=== PATIENT | female | born 1935 | race Caucasian/White ===

== ENCOUNTER 2024-01-31 11:55 | Inpatient (IN) | payer OTHER ==
[~2024-01-31] VITALS: Ht 152.4 cm; Wt 49.0 kg
[2024-01-31 12:33] LABS: BASOPHILS % (AUTO) 0.6 % (0.0-2.0); EOSINOPHILS % (AUTO) 0.5 % (0.0-7.0); HEMATOCRIT 42.7 % (31.2-41.9); HEMOGLOBIN 13.8 g/dL (10.9-14.3); LYMPHOCYTES # (AUTO) 0.2 K/uL (0.8-4.8); LYMPHOCYTES % (AUTO) 3.4 % (20.5-51.5); MEAN CORPUSCULAR HEMOGLOBIN 29.4 uug (24.7-32.8); MEAN CORPUSCULAR HGB CONC 32 g/dL (32.3-35.6); MEAN CORPUSCULAR VOLUME 91.1 fL (75.5-95.3); MONOCYTES # (AUTO) 0.1 K/uL (0.1-1.30); MONOCYTES % (AUTO) 1.5 % (0.0-11.0); NEUTROPHILS # (AUTO) 6.4 K/uL (1.8-8.9); PLATELET COUNT (AUTO) 280 K/uL (179-408); RED BLOOD CELL COUNT(AUTO) 4.69 MIL/uL (3.63-4.92); RED CELL DISTRIBUTION WIDTH 14.5 % (12.3-17.7); WHITE BLOOD COUNT (AUTO) 6.9 K/uL (3.8-11.8)
[2024-01-31 12:42] LABS: CARBON DIOXIDE 29 mmol/L (21-32); CHLORIDE 104 mmol/L (98-107); CREATININE 0.9 mg/dL (0.6-1.3); GLUCOSE 125 mg/dL (74-106); POTASSIUM 3.7 mmol/L (3.5-5.1); SODIUM SERUM 143 mmol/L (136-145); UREA NITROGEN, BLOOD 14 mg/dL (7-18)
[2024-01-31 12:43] LABS: *BILIRUBIN,URIN NEGATIVE (NEGATIVE); *BLOOD, URINE NEGATIVE (NEGATIVE); *CLARITY,URINE CLEAR (CLEAR); *COLOR,URINE YELLOW (YELLOW); *KETONES,URINE TRACE (NEGATIVE); *PROTEIN,URINE NEGATIVE (NEGATIVE); *UROBILINOGEN,URINE 0.2 E.U./dl (NORMAL); LEUKOCYTE ESTERASE ,URINE NEGATIVE (NEGATIVE); NITRITE, URINE NEGATIVE (NEGATIVE); UGLUCOSE NEGATIVE (NEGATIVE)
[2024-01-31 12:49] LABS: DIFFERENTIAL COMMENT 1
[2024-01-31 12:50] LABS: BACTERIA,URINE FEW /HPF (NONE SEEN); SQUAMOUS EPITHELIAL CELL,UR FEW /HPF (NONE SEEN); WBC,URINE 0-3 /HPF (0-3)
[2024-01-31 12:50] LABS: ALANINE AMINOTRANSFERASE 17 U/L (14-59); ALBUMIN 3.4 g/dL (3.4-5.0); ALKALINE PHOSPHATASE 65 U/L (50-136); ASPARTATE AMINOTRANSFERASE 13 U/L (15-37); BILIRUBIN,DIRECT 0.1 mg/dL (0.0-0.2); BILIRUBIN,TOTAL 0.3 mg/dL (0.2-1.0); TOTAL PROTEIN, SERUM 7.1 g/dL (6.4-8.2)
[2024-01-31 21:00] VITALS: BP 128/66; TEMP 98.3; O2SAT 98
[2024-01-31] MEDS ORDERED: ACETAMINOPHEN 325 MG TABLET PO PRN (21:15)
[2024-01-31] MEDS ORDERED: HYDROCODONE/APAP 5-325MG TABLET PO PRN (21:15)
[2024-01-31] MEDS ORDERED: ONDANSETRON 4 MG/2 ML VIAL IV PRN (21:15)
[2024-01-31] MEDS ORDERED: MAGNESIUM HYDROXIDE 30 ML LIQUID UDC PO PRN (21:15)
[2024-01-31] MEDS ORDERED: REMEDY ESSENTIAL ZINC PASTE 113 GM TP PRN (21:15)
[2024-01-31] MEDS: ENOXAPARIN SODIUM 40 MG/0.4 ML DISP.SYRIN SQ SCH (22:05)
[2024-01-31] MEDS: IV 1/2NS 1000 ML 1,000 ML IV PRN (22:51)
[2024-02-01] VITALS: BP 115/60; TEMP 98; O2SAT 95
[2024-02-01 04:00] VITALS: BP 119/70; TEMP 98.2; O2SAT 95
[2024-02-01] MEDS: PANTOPRAZOLE SODIUM 40 MG TABLET.DR PO SCH (06:29)
[2024-02-01 06:50] LABS: BASOPHILS % (AUTO) 0.5 % (0.0-2.0); EOSINOPHILS % (AUTO) 0.6 % (0.0-7.0); HEMATOCRIT 31.1 % (31.2-41.9); HEMOGLOBIN 10.3 g/dL (10.9-14.3); LYMPHOCYTES # (AUTO) 0.4 K/uL (0.8-4.8); MEAN CORPUSCULAR HEMOGLOBIN 30.2 uug (24.7-32.8); MEAN CORPUSCULAR HGB CONC 33 g/dL (32.3-35.6); MEAN CORPUSCULAR VOLUME 90.9 fL (75.5-95.3); MONOCYTES # (AUTO) 0.4 K/uL (0.1-1.30); MONOCYTES % (AUTO) 5.7 % (0.0-11.0); NEUTROPHILS # (AUTO) 5.5 K/uL (1.8-8.9); NEUTROPHILS % (AUTO) 87.2 % (38.5-71.5); PLATELET COUNT (AUTO) 223 K/uL (179-408); RED BLOOD CELL COUNT(AUTO) 3.42 MIL/uL (3.63-4.92); RED CELL DISTRIBUTION WIDTH 14.2 % (12.3-17.7); WHITE BLOOD COUNT (AUTO) 6.3 K/uL (3.8-11.8)
[2024-02-01 07:09] LABS: DIFFERENTIAL COMMENT 1
[2024-02-01 07:16] LABS: CALCIUM 7.6 mg/dL (8.5-10.1); CARBON DIOXIDE 26 mmol/L (21-32); CHLORIDE 102 mmol/L (98-107); CHOLESTEROL 177 mg/dL (<200); CREATININE 0.7 mg/dL (0.6-1.3); GLUCOSE 90 mg/dL (74-106); HDL CHOLESTEROL 55 mg/dL (40-60); PHOSPHOROUS 2.4 mg/dL (2.5-4.9); SODIUM SERUM 132 mmol/L (136-145); TRIGLYCERIDES 68 MG/DL (30-150); UREA NITROGEN, BLOOD 18 mg/dL (7-18)
[2024-02-01 07:17] LABS: POTASSIUM 3.7 mmol/L (3.5-5.1)
[2024-02-01 07:19] LABS: THYROID STIMULATING HORMONE 0.477 mIU/mL (0.358-3.740)
[2024-02-01 07:47] VITALS: BP 126/55; TEMP 98.7; O2SAT 94
[2024-02-01 11:18] VITALS: BP 131/54; TEMP 98.5; O2SAT 96
[2024-02-01] MEDS: NEO/POLYMYX B/DEXAM OPHT DROP 5 ML BOTTLE RIGHTEYE SCH (12:54)
[2024-02-01 15:18] VITALS: BP 130/70; TEMP 98.3; O2SAT 100
[2024-02-01] MEDS: NEUTRA PHOS PACKET PO ONE (15:49)
[2024-02-01 19:00] VITALS: BP 128/57; TEMP 97.7; O2SAT 97
[2024-02-02] VITALS: BP 150/69; TEMP 98; O2SAT 95
[2024-02-02] MEDS: LORAZEPAM 2 MG/1 ML VIAL IV PRN (00:13)
[2024-02-02 04:00] VITALS: BP 132/72; TEMP 97.9; O2SAT 95
[2024-02-02 07:15] LABS: BASOPHILS % (AUTO) 0.6 % (0.0-2.0); EOSINOPHILS # (AUTO) 0.2 K/uL (0.0-0.7); HEMATOCRIT 38.7 % (31.2-41.9); LYMPHOCYTES # (AUTO) 0.7 K/uL (0.8-4.8); MEAN CORPUSCULAR HEMOGLOBIN 30.6 uug (24.7-32.8); MEAN CORPUSCULAR HGB CONC 34 g/dL (32.3-35.6); MEAN CORPUSCULAR VOLUME 91.4 fL (75.5-95.3); MONOCYTES # (AUTO) 0.5 K/uL (0.1-1.30); MONOCYTES % (AUTO) 7.4 % (0.0-11.0); NEUTROPHILS # (AUTO) 4.7 K/uL (1.8-8.9); PLATELET COUNT (AUTO) 253 K/uL (179-408); RED BLOOD CELL COUNT(AUTO) 4.24 MIL/uL (3.63-4.92); RED CELL DISTRIBUTION WIDTH 14.5 % (12.3-17.7); WHITE BLOOD COUNT (AUTO) 6.1 K/uL (3.8-11.8)
[2024-02-02 07:30] LABS: DIFFERENTIAL COMMENT 1
[2024-02-02 07:48] LABS: CALCIUM 8.6 mg/dL (8.5-10.1); CARBON DIOXIDE 27 mmol/L (21-32); CHLORIDE 106 mmol/L (98-107); CREATININE 0.7 mg/dL (0.6-1.3); GLUCOSE 95 mg/dL (74-106); MAGNESIUM 1.8 mg/dL (1.8-2.4); PHOSPHOROUS 2.9 mg/dL (2.5-4.9); POTASSIUM 3.6 mmol/L (3.5-5.1); SODIUM SERUM 141 mmol/L (136-145); UREA NITROGEN, BLOOD 21 mg/dL (7-18)
[2024-02-02 07:51] VITALS: BP 150/81; TEMP 97.5; O2SAT 98
[2024-02-02 12:00] VITALS: BP 125/71; TEMP 98.5; O2SAT 95
== END 2024-02-02 18:01 | DRG 101 ==
LOC: ER 11:55 → TELE3 20:14
PROVIDERS: ATTEND Nurse Practitioner Acute Care
DX: R56.9 Unspecified convulsions (principal); E87.1 Hypo-osmolality and hyponatremia; C44.1122 Basal cell carcinoma of skin of right lower eyelid, including canthus; H91.93 Unspecified hearing loss, bilateral; E78.5 Hyperlipidemia, unspecified; R82.71 Bacteriuria; F03.90 Unspecified dementia, unspecified severity, without behavioral disturbance, psychotic disturbance, mood disturbance, and anxiety; R35.0 Frequency of micturition
CPT/HCPCS: 36415; 70450; 71045; 83605; 83735; 84100; 84443; 84484; 85025; 85730; 87040; 93307; A4606; A4663; G0378; J1650; J2060; J3590